=== PATIENT | female | born 1995 | race Caucasian/White ===

== ENCOUNTER 2018-03-24 00:52 | Inpatient (IN) ==
[2018-03-24] MEDS ORDERED: SODIUM CHLORIDE 0.9% 1000ML 1,000 ML IV SCH (01:15)
[2018-03-24 01:23] LABS: Basophils # (auto) 0.06 K/uL (0-0.2); Basophils % (auto) 0.7 %; Eosinophils # (auto) 0.06 K/uL (0-0.5); Eosinophils % (auto) 0.7 %; Hematocrit (blood only) 41.2 % (37-47); Immature Granulocytes # (auto) 0.01 K/uL (0.00-0.02); Immature Granulocytes % (auto) 0.1 %; Lymphocytes # (auto) 3.33 K/uL (1.2-3.4); Lymphocytes % (auto) 41.1 %; Mean Corpuscular Volume 90.7 fL (80-100); Mean Platelet Volume 9.8 fL (7.4-10.4); Monocytes # (auto) 0.54 K/uL (0.11-0.59); Monocytes % (auto) 6.7 %; Neutrophils # (auto) 4.11 K/uL (1.4-6.5); Neutrophils % (auto) 50.7 %; Platelet Count 283 K/uL (130-400); RDW Coefficient of Variation 12.9 % (11.5-14.5); RDW Standard Deviation 42.7 fL (36.4-46.3); Red Blood Count 4.54 M/uL (4.2-5.4); White Blood Count 8.11 K/uL (4.8-10.8)
[2018-03-24 01:39] LABS: Albumin Level 3.6 gm/dl (3.4-5.0); BUN Creatinine Ratio 18.7 (10-20); Calcium 8.4 mg/dl (8.5-10.1); Creatinine Clr Calc Pharmacy 110.7 ml/min; Est GFR (African American) 144.6; Est GFR (Non-African American) 124.7; Potassium 3.1 mmol/L (3.5-5.1)
[2018-03-24 01:42] LABS: Albumin Globulin Ratio 0.9 (0.9-2); Bilirubin,Total 0.2 mg/dl (0.2-1); Globulin 3.9 gm/dl (2.5-4.0); Total Protein 7.5 gm/dl (6.4-8.2)
[2018-03-24 01:43] LABS: Pregnancy Test, Serum Negative (Negative)
[2018-03-24] MEDS ORDERED: VECURONIUM BROMIDE 10 MG VIAL IV STA (01:45)
[2018-03-24 01:57] LABS: Amphetamines+Metham, Urine Pos (Neg); Barbiturates, Urine Neg (Neg); Benzodiazepine, Urine Pos (Neg); Cocaine, Urine Neg (Neg); MDMA (Ecstacy), Urine Neg (Neg); Methadone, Urine Neg (Neg); Opiate, Urine Neg (Neg); Phencyclidine, Urine Neg (Neg)
--- NOTE | 2018-03-24 03:23 | History & Physical Report ---
Date of Service March 24, 2018 Assessment & Plan (1) Hypothermia: 22 y/o F Hx ADHD. The pt was at a college green party where she consumed a large amount of alcohol. She was with a group of friends most of the night who then lost track of her for a time period they estimate at 5 minutes. They set out to look for her and found her in the snow. EMS was called. She was taking shallow breaths and unresponsive when they arrived so that she was emergently intubated at the scene. On arrival to the ER she had a rectal temp as low as 32 '. She remains unconscious on admission although it is noted that she received both Etomidate and Vecuronium for intubation. Her initial ETOH level was 438. The Preceding information and the pt's medical history is obtained from friends who were with her, her parents and the EMS report. 1) LOC - cause not known. Unclear if she suffered a syncopal episode or simply fell in the snow and was unconscious due to intoxication. Currently a CT of the head is pending. Aside from a high alcohol level, her labs are unremarkable aside from hypkalemia. She is intubated on admission and we would consider sedating her if needed overnight to approach sobriety prior to extubation. 2) Hypothermia - with a warming blanket, her temp had increased to above 35' while in the ER. No additional measures at present. 3) Alcohol intoxication - IVF provided - she seems to be more of a weekend drinker and we are not expecting any withdrawal issues 4) Hypokalemia - repleted and Mg provided Full code - SCDs Total time for this admit including review of labs, meds, imaging, records - discussion with pt's family and ER attending - [facility] critical care time 40 min History of Present Illness Chief Complaint: Unconscious, hypothermic, alcohol intoxication. Primary Care Provider: NO PCP 22 y/o F Hx ADHD. The pt was at a college green party where she consumed a large amount of alcohol. She was with a group of friends most of the night who then lost track of her for a time period they estimate at 5 minutes. They set out to look for her and found her in the snow. EMS was called. She was taking shallow breaths and unresponsive when they arrived so that she was emergently intubated at the scene. On arrival to the ER she had a rectal temp as low as 32 '. She remains unconscious on admission although it is noted that she received both Etomidate and Vecuronium for intubation. Preceding info and the pt's medical history is obtained from friends who were with her, her parents and the EMS report. PMH: Limited to ADHD Has not had any prior surgery Social: Psychology major at [employer], Drinks alcohol - possibly regularly - smokes marijuana - no other drug use Family: No significant family history Allergies Allergy/AdvReac Type Severity Reaction Status Date / Time No Known Allergies Allergy Unverified 03/24/18 01:20 Home Medications Home Medications Medication Instructions Recorded Confirmed Type dextroamphetamine-amphetamine 25 mg PO DIRECTED 03/24/18 03/24/18 History [Adderall XR] Past Med/Surg History Medical History ADHD Family History Other Family history non-contributory Social History Current Living Situation Comment: unknown r/t pt condition Smoking Status: Unknown if ever smoked Hx Alcohol Use: Yes (blood alcholol level eleved in ER, see labs for details) Preferred Language: Sudanese Physical Exam 2 Vital Signs (Past 24 Hours): Last Vital Signs Temp 35.1 C L 03/24/18 00:50 Pulse 85 03/24/18 02:45 Resp 16 03/24/18 01:33 BP 107/64 03/24/18 02:45 Pulse Ox 100 03/24/18 02:45
[2018-03-24] MEDS ORDERED: LORazepam 2 MG/ML VIAL (IM USE) ONE (03:28)
[2018-03-24] MEDS ORDERED: LORazepam 2 MG/4 ML VIAL IV STA (03:55)
[2018-03-24] MEDS ORDERED: ICU PROTOCOL FOR HYPERGLYCEMIA PRN (03:55)
[2018-03-24] MEDS ORDERED: PROPOFOL 1,000 MG/100 ML VIAL IV SCH (03:55)
[2018-03-24] MEDS ORDERED: MAGNESIUM SULFATE / D5W 1 GM/100 ML BAG IV ONE (03:59)
[2018-03-24] MEDS: D5W AND LACTATED RINGERS 1,000 ML IV SCH ×2 (04:12→09:04)
[2018-03-24] MEDS: POTASSIUM CHLORIDE / WTR 10 MEQ/100 ML PLCT IV SCH ×2 (04:14→05:22)
[2018-03-24 04:46] LABS: Basophils # (auto) 0.02 K/uL (0-0.2); Basophils % (auto) 0.4 %; Eosinophils # (auto) 0.01 K/uL (0-0.5); Eosinophils % (auto) 0.2 %; Hematocrit (blood only) 38.5 % (37-47); Hemoglobin 12.8 g/dL (12.0-16.0); Immature Granulocytes # (auto) 0.01 K/uL (0.00-0.02); Immature Granulocytes % (auto) 0.2 %; Lymphocytes % (auto) 29.1 %; Mean Corpuscular Hgb Conc 33.2 g/dL (32-36); Mean Corpuscular Volume 89.7 fL (80-100); Mean Platelet Volume 9.4 fL (7.4-10.4); Monocytes # (auto) 0.24 K/uL (0.11-0.59); Monocytes % (auto) 4.4 %; Neutrophils # (auto) 3.62 K/uL (1.4-6.5); Neutrophils % (auto) 65.7 %; Platelet Count 245 K/uL (130-400); RDW Standard Deviation 42.1 fL (36.4-46.3); Red Blood Count 4.29 M/uL (4.2-5.4)
[2018-03-24 05:05] LABS: BUN Creatinine Ratio 15.8 (10-20); Creatinine Clr Calc Pharmacy 119.2 ml/min; Est GFR (African American) 148.1; Est GFR (Non-African American) 127.8; Magnesium 1.8 mg/dl (1.8-2.4); Potassium 3.6 mmol/L (3.5-5.1)
[2018-03-24] MEDS ORDERED: INFLUENZA ADMINISTRATION CHARGE ONE (06:00)
[2018-03-24] MEDS ORDERED: INFLUENZA VIRUS QUAD VACCINE 0.5 ML SYR IM ONE (06:00)
--- NOTE | 2018-03-24 06:07 | XRay Report ---
XR chest 1V portable CLINICAL HISTORY: 22 years-old Female presenting with post intubation. TECHNIQUE: Portable supine AP view of the chest was obtained. COMPARISON: None. FINDINGS: Endotracheal tube terminates in the right mainstem bronchus. Nasogastric tube terminates in the stoma ch, sidehole not visualized though possibly at the level of the GE junction or above. No focal opacit y. No large effusion or pneumothorax. Osseous structures normal. Upper abdomen normal. IMPRESSION: 1. Right mainstem bronchus intubation. Repositioning evident on subsequent radiograph. 2. Nasogastric tube terminates in the stomach with sidehole at or above the GE junction; consider ad vancement. Electronically signed by: Kaden Caicedo M.D. 03/24/2018 6:06 AM
--- NOTE | 2018-03-24 06:09 | XRay Report ---
XR chest 1V portable CLINICAL HISTORY: 22 years-old Female presenting with REPOSITIONING OF INTUBATION TUBE. TECHNIQUE: Portable supine AP view of the chest was obtained. COMPARISON: 03/24/2018 at 12:48 AM. FINDINGS: Endotracheal tube has been retracted and is now located in the lower thoracic trachea. This is approx imately 1 cm from the narayan. Nasogastric tube remains in the proximal stomach with sidehole at or ab ove the GE junction. Cardiomediastinal silhouette normal. No focal opacity. No large effusion or pneu mothorax. Osseous structures normal. Upper abdomen normal. IMPRESSION: 1. Endotracheal tube now in the lower trachea approximately 1 cm from the narayan; consider slight fu rther retraction. 2. Nasogastric tube terminates in the proximal stomach with sidehole at or above the GE junction; co nsider advancement. Electronically signed by: Kaden Caicedo M.D. 03/24/2018 6:08 AM
--- NOTE | 2018-03-24 06:32 | Emergency Department Note ---
Entered by Cuong Lees acting as a scribe for History of Present Illness General Chief Complaint: Alcohol Intoxication Source: EMS History of Present Illness Provider Complaint: alcohol intoxication Last drink: unknown Type of Alcohol: shots Chronic alcohol use: No Associated symptoms: vomiting Treatments prior to arrival: chemical restraints and other (Intubation) The patient is a 22 year old F who presents to the Emergency Room via EMS heavily intoxicated with alcohol, per EMS. They state the patient was walking home when she collapsed, laying in the snow for about 5 minutes before they arrived. When they did arrive she was unresponsive with a pulse ox in the low 80s so they intubated her. She was sedated with 20 mg of IV etomidate. Following the intubation her pulse ox went back up to 100. The patient also vomited multiple times, and EMS believed she aspirated. Her eyes were dilated on physical exam. Her sugar was 123, her ETCO2 prior to intubation was 75-80, her blood pressure was 98/62, and she was breathing about 5 times a minute prior to the intubation. En route the patient received 5mg of Versed and 100mcg of Fentanyl. They also suctioned about 150cc of vomit and inserted an NG tube, which got another 250-300cc. They do not know how much she drank and she only takes Adderall daily. Per the patient's friends, they went out to a house democrat around 2129 where the patient was chugging vodka. They are not exactly sure how much she drank, but suggested anywhere between 1/2 to 3/4 a fifth of vodka. They deny that the patient used any drugs as well as her being depressed or trying to hurt herself. Home Medications Home Medications Medication Instructions Recorded Confirmed Type dextroamphetamine-amphetamine 25 mg PO DIRECTED 03/24/18 03/24/18 History [Adderall XR] Allergies Allergy/AdvReac Type Severity Reaction Status Date / Time No Known Allergies Allergy Unverified 03/24/18 01:20 Past Med/Surg History Medical History ADHD Family History Other Family history non-contributory Social History Current Living Situation Comment: unknown r/t pt condition Smoking Status: Unknown if ever smoked Hx Alcohol Use: Yes (blood alcholol level eleved in ER, see labs for details) Preferred Language: Korean Review of Systems See HPI for pertinent positives & negatives. and A total of 10 systems reviewed and were otherwise negative Physical Exam 2 Vital Signs: Vital Signs - 24 hr 03/24/18 00:50 03/24/18 01:05 03/24/18 01:06 Temperature 35.1 C L Temperature Source Rectal Rectal Temperature Sepsis Recent Feve r Within 48 Hours No Sepsis Action Take n by Nursing No Action Required Pulse Rate 84 70 67 Pulse Rhythm Regular Pulse Strength Normal Respiratory Rate 16 16 Respiratory Effort / Characteristics Mechanically Venti lated Respiratory Depth Normal Respiratory Patter n Regular Blood Pressure 126/77 111/68 Blood Pressure [Ri ght Arm] Blood Pressure Clara n 93 82 Blood Pressure Clara n [Right Arm] Blood Pressure Pos ition Lying Pulse Oximetry 100 100 100 Oxygen Delivery Me thod Mechanical Vent Fraction of Inspir ed Oxygen 30 30 SaO2/FiO2 Ratio 03/24/18 01:14 03/24/18 01:15 03/24/18 01:30 Temperature Temperature Source Rectal Temperature Sepsis Recent Feve r Within 48 Hours Sepsis Action Take n by Nursing Pulse Rate 63 62 56 L Pulse Rhythm Pulse Strength Respiratory Rate Respiratory Effort / Characteristics Respiratory Depth Respiratory Patter n Blood Pressure 114/74 115/78 143/106 H Blood Pressure [Ri ght Arm] Blood Pressure Clara n 87 90 118 Blood Pressure Clara n [Right Arm] Blood Pressure Pos ition Pulse Oximetry 100 100 100 Oxygen Delivery Me thod Fraction of Inspir ed Oxygen SaO2/FiO2 Ratio 03/24/18 01:33 03/24/18 01:45 03/24/18 02:00 Temperature Temperature Source Rectal Temperature 34.6 C L Sepsis Recent Feve r Within 48 Hours Sepsis Action Take n by Nursing Pulse Rate 72 53 L 63 Pulse Rhythm Pulse Strength Respiratory Rate 16 Respiratory Effort / Characteristics Respiratory Depth Respiratory Patter n Blood Pressure 139/106 H Blood Pressure [Ri ght Arm] Blood Pressure Clara n 117 Blood Pressure Clara n [Right Arm] Blood Pressure Pos ition Pulse Oximetry 100 100 100 Oxygen Delivery Me thod Fraction of Inspir ed Oxygen 30 SaO2/FiO2 Ratio 03/24/18 02:30 03/24/18 02:45 03/24/18 03:00 Temperature Temperature Source Rectal Temperature 35 C L 35.3 C L Sepsis Recent Feve r Within 48 Hours Sepsis Action Take n by Nursing Pulse Rate 78 85 94 H Pulse Rhythm Pulse Strength Respiratory Rate Respiratory Effort / Characteristics Respiratory Depth Respiratory Patter n Blood Pressure 114/69 107/64 108/67 Blood Pressure [Ri ght Arm] Blood Pressure Clara n 84 78 80 Blood Pressure Clara n [Right Arm] Blood Pressure Pos ition Pulse Oximetry 100 100 100 Oxygen Delivery Me thod Fraction of Inspir ed Oxygen SaO2/FiO2 Ratio 03/24/18 03:15 03/24/18 03:42 03/24/18 03:48 Temperature 36.1 C L Temperature Source Rectal Rectal Temperature Sepsis Recent Feve r Within 48 Hours Sepsis Action Take n by Nursing Pulse Rate 109 H 114 H Pulse Rhythm Pulse Strength Respiratory Rate 16 20 Respiratory Effort / Characteristics Mechanically Venti lated Respiratory Depth Respiratory Patter n Blood Pressure 102/60 112/83 Blood Pressure [Ri ght Arm] 112/83 Blood Pressure Clara n 74 92 Blood Pressure Clara n [Right Arm] 92 Blood Pressure Pos ition Pulse Oximetry 99 100 Oxygen Delivery Me thod Mechanical Vent Fraction of Inspir ed Oxygen 30 SaO2/FiO2 Ratio 333 03/24/18 03:53 03/24/18 04:00 03/24/18 04:15 Temperature Temperature Source Rectal Temperature 36.2 C L Sepsis Recent Feve r Within 48 Hours Sepsis Action Take n by Nursing Pulse Rate 124 H 91 H 95 H Pulse Rhythm Pulse Strength Respiratory Rate 16 Respiratory Effort / Characteristics Respiratory Depth Respiratory Patter n Blood Pressure 117/79 100/57 L Blood Pressure [Ri ght Arm] Blood Pressure Clara n 91 71 Blood Pressure Clara n [Right Arm] Blood Pressure Pos ition Pulse Oximetry 100 100 Oxygen Delivery Me thod Fraction of Inspir ed Oxygen 30 SaO2/FiO2 Ratio 03/24/18 04:30 03/24/18 04:45 03/24/18 05:00 Temperature Temperature Source Rectal Temperature Sepsis Recent Feve r Within 48 Hours Sepsis Action Take n by Nursing Pulse Rate 87 88 83 Pulse Rhythm Pulse Strength Respiratory Rate Respiratory Effort / Characteristics Respiratory Depth Respiratory Patter n Blood Pressure 94/57 L 93/57 L 107/69 Blood Pressure [Ri ght Arm] Blood Pressure Clara n 69 69 81 Blood Pressure Clara n [Right Arm] Blood Pressure Pos ition Pulse Oximetry 100 100 100 Oxygen Delivery Me thod Fraction of Inspir ed Oxygen SaO2/FiO2 Ratio 03/24/18 05:15 03/24/18 05:30 03/24/18 05:45 Temperature Temperature Source Rectal Temperature Sepsis Recent Feve r Within 48 Hours Sepsis Action Take n by Nursing Pulse Rate 98 H 111 H 105 H Pulse Rhythm Pulse Strength Respiratory Rate 16 Respiratory Effort / Characteristics Respiratory Depth Respiratory Patter n Blood Pressure 94/50 L 114/70 104/66 Blood Pressure [Ri ght Arm] Blood Pressure Clara n 64 84 78 Blood Pressure Clara n [Right Arm] Blood Pressure Pos ition Pulse Oximetry 99 98 99 Oxygen Delivery Me thod Fraction of Inspir ed Oxygen 30 SaO2/FiO2 Ratio 03/24/18 06:00 03/24/18 06:15 Temperature Temperature Source Rectal Temperature Sepsis Recent Feve r Within 48 Hours Sepsis Action Take n by Nursing Pulse Rate 110 H 103 H Pulse Rhythm Pulse Strength Respiratory Rate Respiratory Effort / Characteristics Respiratory Depth Respiratory Patter n Blood Pressure 98/56 L 95/50 L Blood Pressure [Ri ght Arm] Blood Pressure Clara n 70 65 Blood Pressure Clara n [Right Arm] Blood Pressure Pos ition Pulse Oximetry 99 99 Oxygen Delivery Me thod Fraction of Inspir ed Oxygen SaO2/FiO2 Ratio Physical Exam: General: GCS 4 HEENT: Head - normocephalic and atraumatic Pupils are 3mm equal, round, and non-reactive to light. Extraocular eye muscles are intact, and sclera are anicteric. Nose - moist nasal mucosa without discharge. Mouth - moist buccal mucosa. Endotracheal tube in place Oropharynx is nonerythematous and there is no tonsillar exudate or edema noted. Neck: Supple; no JVD, nuchal rigidity, cervical lymphadenopathy. Heart: Regular rate and rhythm. There is a normal S1 and S2 with no murmurs, clicks, or gallops appreciated. Lungs: Clear to auscultation bilaterally with no wheezes, rales, or rhonchi. Abdomen: Soft, completely nontender, nondistended, with good bowel sounds. There are no palpable pulsatile masses or hepatosplenomegaly. There is no guarding, rigidity, or rebound noted. Extremities: No evidence of cyanosis, clubbing, or edema. There are easily palpable peripheral pulses. Skin: warm and dry with good turgor and no rashes. Course 0052: Past medical records reviewed. The patient was evaluated in room B01, and a complete history and physical examination were performed. Report was received from EMS. The patient was placed in the cardiac catheterization technologist and pulse oximeter. A portable chest x-ray was obtained to confirm tube placement. Vital signs were stable. The patient was placed on the ventilator. She was starting to palacio the ventilator. She was given 5 mg of IV vecuronium. the endotracheal tube was noted to be in the right mainstem. Was pulled back 2 cm and a second chest x-ray was obtained. 0110: The patient's friends contacted her parents. I spoke to the patient's father and he is going to come. I assured him I will call to update him on results. 0115: I ordered Sodium Chloride 1000mls @ 999mls/hr IV. The patient was hypothermic and therefore this saline was warmed. The bear hugger was placed. 0150: The patient's temperature dropped to 32C. She was placed on a warming blanket. I called and updated the father. 0210: I updated the patient's friends on the situation. 0230: The environmental compliance officer was paged. 0234: I spoke to Dr. Geri Schilling [facility] Workforce Planner about the patient's case and her results thus far. 0250: I spoke to Dr. Chris [facility] Hospitalist about the patient's case and he is going to accept her. A CT scan of the brain was ordered to rule out trauma. This was negative. Consultations Consultation #1: I spoke to Dr. Geri Schilling [facility] Workforce Planner about the patient's case and her results thus far. Time: 02:34 Consultation #2: I spoke to Dr. Chris [facility] Hospitalist about the patient's case and he is going to accept her. Time: 02:50 Administered Medications Potassium Chloride (K Rogelio / Wtr) 10 meq in 100 mls @ 100 mls/hr IV Q1H ROSA ELENA Stop: 04/23/18 03:59 Last Admin: 03/24/18 05:22 Dose: 100 mls/hr Infusion: 03/24/18 05:14 Dose: 100 mls/hr Admin: 03/24/18 04:14 Dose: 100 mls/hr Dextrose/Lactated Ringer's (D5w And Lactated Ringers) 1,000 mls @ 200 mls/hr IV .Q5H ROSAE LENA Stop: 03/24/18 13:59 Last Admin: 03/24/18 04:12 Dose: 200 mls/hr Discontinued Medications Sodium Chloride (Nss 1000ml) 1,000 mls @ 999 mls/hr IV .Q1H1M ROSA ELENA Stop: 03/24/18 02:15 Last Infusion: 03/24/18 02:40 Dose: 0 mls/hr Admin: 03/24/18 01:37 Dose: 999 mls/hr Magnesium Sulfate/Dextrose (Magnesium Sulfate / D5w) 1 gm in 100 mls @ 100 mls/ hr IV ONE ONE Stop: 03/24/18 04:58 Last Infusion: 03/24/18 05:30 Dose: 0 mls/hr Admin: 03/24/18 04:16 Dose: 100 mls/hr Vecuronium [place] (Norcuron) 5 mg IV NOW STA Stop: 03/24/18 01:46 Last Admin: 03/24/18 01:00 Dose: 5 mg Medical Decision Making Differential Diagnosis The patient is a 22 year old female who presents to the ED via EMS heavily intoxicated with alcohol. Differential diagnosis includes alcohol overdose, drug intoxication, hypothermia, and head trauma, amongst others. Medical Records Attestation: I reviewed the patient's medical records. Home Medications Current Medication List: was personally reviewed by me Laboratory Data Attestation: I reviewed the patient's lab results. Result diagrams: 03/24/18 04:35 03/24/18 04:35 Lab Results 03/24/18 03/24/18 03/24/18 Range/Units 01:11 01:11 01:11 WBC 8.11 (4.8-10.8) K/uL RBC 4.54 (4.2-5.4) M/uL Hgb 14.0 (12.0-16.0) g/dL Hct 41.2 (37-47) % MCV 90.7 (80-100) fL MCH 30.8 (25-34) pg MCHC 34.0 (32-36) g/dL RDW Std Deviation 42.7 (36.4-46.3) fL RDW Coeff of Nini 12.9 (11.5-14.5) % Plt Count 283 (130-400) K/uL MPV 9.8 (7.4-10.4) fL Immature Gran % (Auto) 0.1 % Neut % (Auto) 50.7 % Lymph % (Auto) 41.1 % Dickinson % (Auto) 6.7 % Eos % (Auto) 0.7 % Baso % (Auto) 0.7 % Immature Gran # (Auto) 0.01 (0.00-0.02) K/uL Neut # (Auto) 4.11 (1.4-6.5) K/uL Lymph # (Auto) 3.33 (1.2-3.4) K/uL Dickinson # (Auto) 0.54 (0.11-0.59) K/uL Eos # (Auto) 0.06 (0-0.5) K/uL Baso # (Auto) 0.06 (0-0.2) K/uL Sodium 139 (136-145) mmol/L Potassium 3.1 L (3.5-5.1) mmol/L Chloride 111 H (98-107) mmol/L Carbon Dioxide 21 (21-32) mmol/L Anion Gap 7.0 (3-11) BUN 13 (7-18) mg/dl Creatinine 0.70 (0.6-1.2) mg/dl Est Cr Clr Drug Dosing 110.7 ml/min Est GFR ( Amer) 144.6 Est GFR (Non-Af Amer) 124.7 BUN/Creatinine Ratio 18.7 (10-20) Glucose 107 H (70-99) mg/dl POC Glucose (70-99) Osmolality (280-300) mOsm/kg Calcium 8.4 L (8.5-10.1) mg/dl Magnesium (1.8-2.4) mg/dl Total Bilirubin 0.2 (0.2-1) mg/dl AST 21 (15-37) U/L ALT 21 (12-78) U/L Alkaline Phosphatase 87 (45-117) U/L Total Protein 7.5 (6.4-8.2) gm/dl Albumin 3.6 (3.4-5.0) gm/dl Globulin 3.9 (2.5-4.0) gm/dl Albumin/Globulin Ratio 0.9 (0.9-2) HCG, Qual (Negative) Nasal Screen MRSA (PCR) (Negative) Urine Opiates Screen (Neg) Ur Methadone, Qual (Neg) Urine Barbiturates (Neg) Ur Phencyclidine (PCP) (Neg) U Amphetamin/Meth Scrn (Neg) MDMA (Ecstasy) Screen (Neg) U Benzodiazepines Scrn (Neg) Ur Cocaine Metabolite (Neg) U Marijuana (THC) Screen (Neg) Ethyl Alcohol mg/dL 438.0 H (0-3) mg/dl Methyl Alcohol Level 03/24/18 03/24/18 03/24/18 Range/Units 01:11 01:15 01:36 WBC (4.8-10.8) K/uL RBC (4.2-5.4) M/uL Hgb (12.0-16.0) g/dL Hct (37-47) % MCV (80-100) fL MCH (25-34) pg MCHC (32-36) g/dL RDW Std Deviation (36.4-46.3) fL RDW Coeff of Nini (11.5-14.5) % Plt Count (130-400) K/uL MPV (7.4-10.4) fL Immature Gran % (Auto) % Neut % (Auto) % Lymph % (Auto) % Dickinson % (Auto) % Eos % (Auto) % Baso % (Auto) % Immature Gran # (Auto) (0.00-0.02) K/uL Neut # (Auto) (1.4-6.5) K/uL Lymph # (Auto) (1.2-3.4) K/uL Dickinson # (Auto) (0.11-0.59) K/uL Eos # (Auto) (0-0.5) K/uL Baso # (Auto) (0-0.2) K/uL Sodium (136-145) mmol/L Potassium (3.5-5.1) mmol/L Chloride (98-107) mmol/L Carbon Dioxide (21-32) mmol/L Anion Gap (3-11) BUN (7-18) mg/dl Creatinine (0.6-1.2) mg/dl Est Cr Clr Drug Dosing ml/min Est GFR ( Amer) Est GFR (Non-Af Amer) BUN/Creatinine Ratio (10-20) Glucose (70-99) mg/dl POC Glucose 83 (70-99) Osmolality (280-300) mOsm/kg Calcium (8.5-10.1) mg/dl Magnesium (1.8-2.4) mg/dl Total Bilirubin (0.2-1) mg/dl AST (15-37) U/L ALT (12-78) U/L Alkaline Phosphatase (45-117) U/L Total Protein (6.4-8.2) gm/dl Albumin (3.4-5.0) gm/dl Globulin (2.5-4.0) gm/dl Albumin/Globulin Ratio (0.9-2) HCG, Qual Negative (Negative) Nasal Screen MRSA (PCR) (Negative) Urine Opiates Screen Neg (Neg) Ur Methadone, Qual Neg (Neg) Urine Barbiturates Neg (Neg) Ur Phencyclidine (PCP) Neg (Neg) U Amphetamin/Meth Scrn Pos H (Neg) MDMA (Ecstasy) Screen Neg (Neg) U Benzodiazepines Scrn Pos H (Neg) Ur Cocaine Metabolite Neg (Neg) U Marijuana (THC) Screen Pos H (Neg) Ethyl Alcohol mg/dL (0-3) mg/dl Methyl Alcohol Level 03/24/18 03/24/18 03/24/18 Range/Units 02:42 04:35 04:35 WBC (4.8-10.8) K/uL RBC (4.2-5.4) M/uL Hgb (12.0-16.0) g/dL Hct (37-47) % MCV (80-100) fL MCH (25-34) pg MCHC (32-36) g/dL RDW Std Deviation (36.4-46.3) fL RDW Coeff of Nini (11.5-14.5) % Plt Count (130-400) K/uL MPV (7.4-10.4) fL Immature Gran % (Auto) % Neut % (Auto) % Lymph % (Auto) % Dickinson % (Auto) % Eos % (Auto) % Baso % (Auto) % Immature Gran # (Auto) (0.00-0.02) K/uL Neut # (Auto) (1.4-6.5) K/uL Lymph # (Auto) (1.2-3.4) K/uL Dickinson # (Auto) (0.11-0.59) K/uL Eos # (Auto) (0-0.5) K/uL Baso # (Auto) (0-0.2) K/uL Sodium (136-145) mmol/L Potassium (3.5-5.1) mmol/L Chloride (98-107) mmol/L Carbon Dioxide (21-32) mmol/L Anion Gap (3-11) BUN (7-18) mg/dl Creatinine (0.6-1.2) mg/dl Est Cr Clr Drug Dosing ml/min Est GFR ( Amer) Est GFR (Non-Af Amer) BUN/Creatinine Ratio (10-20) Glucose (70-99) mg/dl POC Glucose (70-99) Osmolality 389 H* (280-300) mOsm/kg Calcium (8.5-10.1) mg/dl Magnesium (1.8-2.4) mg/dl Total Bilirubin (0.2-1) mg/dl AST (15-37) U/L ALT (12-78) U/L Alkaline Phosphatase (45-117) U/L Total Protein (6.4-8.2) gm/dl Albumin (3.4-5.0) gm/dl Globulin (2.5-4.0) gm/dl Albumin/Globulin Ratio (0.9-2) HCG, Qual (Negative) Nasal Screen MRSA (PCR) Negative (Negative) Urine Opiates Screen (Neg) Ur Methadone, Qual (Neg) Urine Barbiturates (Neg) Ur Phencyclidine (PCP) (Neg) U Amphetamin/Meth Scrn (Neg) MDMA (Ecstasy) Screen (Neg) U Benzodiazepines Scrn (Neg) Ur Cocaine Metabolite (Neg) U Marijuana (THC) Screen (Neg) Ethyl Alcohol mg/dL (0-3) mg/dl Methyl Alcohol Level Cancelled 03/24/18 03/24/18 03/24/18 Range/Units 04:35 04:35 05:02 WBC 5.50 (4.8-10.8) K/uL RBC 4.29 (4.2-5.4) M/uL Hgb 12.8 (12.0-16.0) g/dL Hct 38.5 (37-47) % MCV 89.7 (80-100) fL MCH 29.8 (25-34) pg MCHC 33.2 (32-36) g/dL RDW Std Deviation 42.1 (36.4-46.3) fL RDW Coeff of Nini 13.0 (11.5-14.5) % Plt Count 245 (130-400) K/uL MPV 9.4 (7.4-10.4) fL Immature Gran % (Auto) 0.2 % Neut % (Auto) 65.7 % Lymph % (Auto) 29.1 % Dickinson % (Auto) 4.4 % Eos % (Auto) 0.2 % Baso % (Auto) 0.4 % Immature Gran # (Auto) 0.01 (0.00-0.02) K/uL Neut # (Auto) 3.62 (1.4-6.5) K/uL Lymph # (Auto) 1.60 (1.2-3.4) K/uL Dickinson # (Auto) 0.24 (0.11-0.59) K/uL Eos # (Auto) 0.01 (0-0.5) K/uL Baso # (Auto) 0.02 (0-0.2) K/uL Sodium 145 (136-145) mmol/L Potassium 3.6 D (3.5-5.1) mmol/L Chloride 119 H (98-107) mmol/L Carbon Dioxide 20 L (21-32) mmol/L Anion Gap 6.0 (3-11) BUN 10 (7-18) mg/dl Creatinine 0.65 (0.6-1.2) mg/dl Est Cr Clr Drug Dosing 119.2 ml/min Est GFR ( Amer) 148.1 Est GFR (Non-Af Amer) 127.8 BUN/Creatinine Ratio 15.8 (10-20) Glucose 89 (70-99) mg/dl POC Glucose (70-99) Osmolality (280-300) mOsm/kg Calcium 7.0 L D (8.5-10.1) mg/dl Magnesium 1.8 (1.8-2.4) mg/dl Total Bilirubin (0.2-1) mg/dl AST (15-37) U/L ALT (12-78) U/L Alkaline Phosphatase (45-117) U/L Total Protein (6.4-8.2) gm/dl Albumin (3.4-5.0) gm/dl Globulin (2.5-4.0) gm/dl Albumin/Globulin Ratio (0.9-2) HCG, Qual (Negative) Nasal Screen MRSA (PCR) (Negative) Urine Opiates Screen (Neg) Ur Methadone, Qual (Neg) Urine Barbiturates (Neg) Ur Phencyclidine (PCP) (Neg) U Amphetamin/Meth Scrn (Neg) MDMA (Ecstasy) Screen (Neg) U Benzodiazepines Scrn (Neg) Ur Cocaine Metabolite (Neg) U Marijuana (THC) Screen (Neg) Ethyl Alcohol mg/dL 348.0 H (0-3) mg/dl Methyl Alcohol Level Imaging Data Attestation: I personally reviewed and interpreted this imaging study as follows : My impression: CXR 1V: ET tube in right main stem, no obvious consolidation REPEAT: CXR 1V: ET tube 1cm above narayan, no other pulmonary findings Radiologist's impression: Radiology results as stated below per my review and the radiologist's interpretation: CT HEAD No acute intracranial hemorrhage or extra axial fluid collection. No calvarial fractures. Radiologist: Maicol Price MD Study ready at 03:43 and initial results transmitted at 04:02 ECG Data Attestation: I personally reviewed and interpreted this ECG as follows: Indication: toxicologic Rate (beats per minute): 66 Rhythm: normal sinus Findings: no PAC, no PVC and no acute ischemic change Blood Pressure Blood Pressure Findings: Normal blood pressure MDM Narrative This is a 22-year-old female patient who presents to the emergency department by EMS as an alcohol overdose with hypoxia. According to the friends, the patient drank a large amount of vodka and then was found outside a house unresponsive in the snow. EMS found the patient hypoxic with a respiratory rate of 5. They used etomidate to facilitate sedation assisted intubation. This was successful in the field. Patient had an elevated end-tidal CO2 and pulse ox prior to intubation and these normalized after intubation. The patient was noted to be significantly hypothermic. She was initially placed on warmed IV fluids and a bear hugger. Her temp was not improving and therefore she was placed on a warming blanket. I kept the patient parents abreast of the situation. The patient's friends who are at the bedside abreast of the situation as well. She had no outward signs of hypothermia such as frostbite. The patient's blood alcohol level was greater than 430. I believe this accounts for her unresponsiveness. I discussed the case with the hospitalist and the environmental compliance officer and they will further evaluate this patient. Impression & Plan Alcohol overdose, Hypothermia, Hypoxia Critical Care Time I have personally spent greater than 120 minutes of critical care time in the direct management of this patient. This includes bedside care, interpretation of diagnostic studies, and testing, discussion with consultants, patient, and family members, and other required patient management activities. This 120 minutes is in excess of all separately billable procedures. Critical Care Time: Yes Total Critical Care Time: 120 Discharge Plan Visit Data *Final* Discharge Date/Time: 03/24/18 03:23 Chief Complaint: Alcohol Intoxication ED Provider: Sindy Fisher Discharge Problem: Alcohol overdose, Hypothermia, Hypoxia Patient Disposition: Admitted As Inpatient Discharge Instructions Interventions: ED Discharge Assessment Last Done: 03/24/18 03:23 The scribe's documentation has been prepared under my direction and personally reviewed by me in its entirety. I confirm that the note above accurately reflects all work, treatment, procedures, and medical decision making performed by me.
--- NOTE | 2018-03-24 07:07 | CT Scan Report ---
CT head/brain wo con CLINICAL HISTORY: 22 years-old Female presenting with trauma. TECHNIQUE: Multidetector CT imaging of the head was performed without the use of intravenous contrast . IV contrast: None. One or more dose lowering techniques were used consistent with the principles of ALARA (as low as reasonably achievable), including automatic exposure control, mA or kV adjustment t o individual patient size, and/or use of iterative reconstruction. COMPARISON: None. CT DOSE (mGy.cm): The estimated cumulative dose is 614.27 mGy.cm. FINDINGS: [employer] topogram: Unremarkable. Ventricles and sulci normal in size. No hemorrhage. Brain parenchyma normal in appearance with preser akbar garzon-white differentiation. No acute territorial infarct. No mass effect or midline shift. No ext ra-axial fluid collection. Paranasal sinuses and mastoid air cells clear. Calvarium intact. IMPRESSION: 1. No acute intracranial abnormality. Electronically signed by: Kaden Caicedo M.D. 03/24/2018 7:06 AM
--- NOTE | 2018-03-24 07:58 | Critical Care Consultation ---
Date of Consultation March 24, 2018 Assessment & Plan (1) Alcohol overdose: 22-year-old female was admitted on 24 March 2018 for hypoxia, hypothermia, and altered mental status. RESOURCE FORESTER: CAM-ICU negative this AM. Extubated this morning. CT head negative. EtOH was 438, trending down. UDS positive for benzo and THC. PMH ADHD, on adderall. - Had a lengthy discussion with the patient and her parents at bedside. She will be no longer legally intoxicated roughly earlier this afternoon. If she continues to do well with her mental status, she can likely be discharged into her parents custody later today. Pulm: Emergently intubated for hypoxia, extubated in a.m. Question of aspiration with emesis event. No opacity seen on CXR. Presently lungs are clear to auscultation. No evidence of respiratory distress. CVS: No known underlying CV disease. Relative hypotension with hypothermia, since resolved. Given IVF. ID: Hypothermic, likely environmental, resolving. No leukocytosis. No reported recent illnesses. Endo: Hypothermia with temp 36.1 on arrival. No known underlying DM or thyroid issues. Urine hCG negative. Renal/Lytes: Admit Cr 0.7. Hypokalemia, admit K 3.1, replaced. Magnesium repleted as well. Blood Osm 389. Osm gap -1. GI: No known acute issues. Can advance to regular diet now that extubated. Heme: Admit Hb 12.8. No known acute issues. DVT prophy: SCDs and early ambulation. Skin: No evidence of frostbite on extremities. Lines: PIV, NGT. Code status: Full code. PT/OT: Deferred. Disposition: Initially admitted to ICU due to intubation. If she continues to do well, likely discharge home this afternoon into her parent's custody. (2) Hypothermia: (3) Hypoxia: (4) Hypokalemia: Supervising Physician Co-Signing Physician Notes Dr. Arceo was resident physician during care of patient. I separately evaluated patient for chicas portions of the history and the exam. I was present during the critical portion of medical decision making, and I discussed the case with the resident. I generally agree with the findings and plan. Patient was able to follow commands and was successfully extubated. Based off her symptoms and calculated alcohol level she did not have any coingestions. She does not have elevated liver enzymes, she was not hypoxic and there was no infiltrate on chest x-ray I think she is at low risk for aspiration pneumonia, most I do not see various convincing evidence of aspiration pneumonitis. She is able to eat ambulate and void without difficulty and was discharged into the care of her parents. History of Present Illness Attending Physician: Marcelino Brooks History of Present Illness 22-year-old female was brought to the ED via EMS with concerns for hypoxia, hypothermia, and AMS. Patient arrived intubated, thus initial history is per EMS, ED, and later family. By report, the patient drank upwards of a fifth of alcohol very quickly at a alliance party the night of admission. Her friends lost track of her and she was found within five minutes outside lying down in the snow. EMS states her SpO2 was around 70s-80s, she was taking shallow breaths and was unresponsive, and therefore was emergently intubated. On evaluation in the ICU in the morning after this event, patient was found initially intubated with her parents at bedside. She woke and was following commands, thus was extubated. She states she remembers drinking too much alcohol but does not recall falling. She does not recall being intubated. She denies any particular acute pains or concerns. Allergies Allergy/AdvReac Type Severity Reaction Status Date / Time No Known Allergies Allergy Unverified 03/24/18 01:20 Home Medications Home Medications Medication Instructions Recorded Confirmed Type dextroamphetamine-amphetamine 25 mg PO DIRECTED 03/24/18 03/24/18 History [Adderall XR] Patient History Medical History ADHD Family History Other Family history non-contributory Social History Current Living Situation Comment: unknown r/t pt condition Smoking Status: Unknown if ever smoked Hx Alcohol Use: Yes (blood alcholol level eleved in ER, see labs for details) Preferred Language: Lithuanian Review of Systems Unable to obtain ROS due to current intoxication. Physical Exam 2 Vital Signs (Past 24 Hours): Last Vital Signs Temp 36.1 C L 03/24/18 03:42 Pulse 103 H 03/24/18 06:15 Resp 16 03/24/18 05:15 BP 95/50 L 03/24/18 06:15 Pulse Ox 99 03/24/18 06:15 Physical Exam: GENERAL: Awake, alert, mildly disoriented, appears fatigued, but does not appear in any acute distress. HENT: Normocephalic, atraumatic. Oropharynx unremarkable. EYES: Normal conjunctiva. Sclera non-icteric. NECK: Inspection normal. Non-tender. Supple and full ROM. No nuchal rigidity. CARDIAC: +S1S2 RRR, no murmurs. RESPIRATORY: Clear to auscultation. No wheezes or rales. Normal respiratory effort. GI: +BS, soft, non-distended. No tenderness to palpation. No rebound or guarding. EXTREMITIES: No pedal edema or calf tenderness. Moving all extremities naturally and easily. NEURO: No gross neuro deficits. Results & Data Laboratory Results 03/24/18 03/24/18 03/24/18 Range/Units 05:02 04:35 04:35 WBC 5.50 (4.8-10.8) K/uL RBC 4.29 (4.2-5.4) M/uL Hgb 12.8 (12.0-16.0) g/dL Hct 38.5 (37-47) % MCV 89.7 (80-100) fL MCH 29.8 (25-34) pg MCHC 33.2 (32-36) g/dL RDW Std Deviation 42.1 (36.4-46.3) fL RDW Coeff of Nini 13.0 (11.5-14.5) % Plt Count 245 (130-400) K/uL MPV 9.4 (7.4-10.4) fL Immature Gran % (Auto) 0.2 % Neut % (Auto) 65.7 % Lymph % (Auto) 29.1 % [place] % (Auto) 4.4 % Eos % (Auto) 0.2 % Baso % (Auto) 0.4 % Immature Gran # (Auto) 0.01 (0.00-0.02) K/uL Neut # (Auto) 3.62 (1.4-6.5) K/uL Lymph # (Auto) 1.60 (1.2-3.4) K/uL [place] # (Auto) 0.24 (0.11-0.59) K/uL Eos # (Auto) 0.01 (0-0.5) K/uL Baso # (Auto) 0.02 (0-0.2) K/uL Sodium 145 (136-145) mmol/L Potassium 3.6 D (3.5-5.1) mmol/L Chloride 119 H (98-107) mmol/L Carbon Dioxide 20 L (21-32) mmol/L Anion Gap 6.0 (3-11) BUN 10 (7-18) mg/dl Creatinine 0.65 (0.6-1.2) mg/dl Est Cr Clr Drug Dosing 119.2 ml/min Est GFR ( Amer) 148.1 Est GFR (Non-Af Amer) 127.8 BUN/Creatinine Ratio 15.8 (10-20) Glucose 89 (70-99) mg/dl POC Glucose (70-99) Osmolality (280-300) mOsm/kg Calcium 7.0 L D (8.5-10.1) mg/dl Magnesium 1.8 (1.8-2.4) mg/dl Total Bilirubin (0.2-1) mg/dl AST (15-37) U/L ALT (12-78) U/L Alkaline Phosphatase (45-117) U/L Total Protein (6.4-8.2) gm/dl Albumin (3.4-5.0) gm/dl Globulin (2.5-4.0) gm/dl Albumin/Globulin Ratio (0.9-2) HCG, Qual (Negative) Nasal Screen MRSA (PCR) (Negative) Urine Opiates Screen (Neg) Ur Methadone, Qual (Neg) Urine Barbiturates (Neg) Ur Phencyclidine (PCP) (Neg) U Amphetamines Confirm U Amphetamin/Meth Scrn (Neg) U Methamphetamin Confrm MDMA (Ecstasy) Screen (Neg) U OH-Alprazolam Confrm U Benzodiazepines Scrn (Neg) 7-Amino Clonazepam Ur Nordiazepam Confirm U OH-ethylflurazepam U Lorazepam Cnf GC/MS U Oxazepam Confm GC/MS Ur Temazepam Confirm U OH-Triazolam Confirm U OH-Midazolam Confirm Ur Cocaine Metabolite (Neg) U Marijuana (THC) Screen (Neg) U Marijuana THC Carboxy Ethyl Alcohol mg/dL 348.0 H (0-3) mg/dl Methyl Alcohol Level 03/24/18 03/24/18 03/24/18 Range/Units 04:35 04:35 02:42 WBC (4.8-10.8) K/uL RBC (4.2-5.4) M/uL Hgb (12.0-16.0) g/dL Hct (37-47) % MCV (80-100) fL MCH (25-34) pg MCHC (32-36) g/dL RDW Std Deviation (36.4-46.3) fL RDW Coeff of Nini (11.5-14.5) % Plt Count (130-400) K/uL MPV (7.4-10.4) fL Immature Gran % (Auto) % Neut % (Auto) % Lymph % (Auto) % [place] % (Auto) % Eos % (Auto) % Baso % (Auto) % Immature Gran # (Auto) (0.00-0.02) K/uL Neut # (Auto) (1.4-6.5) K/uL Lymph # (Auto) (1.2-3.4) K/uL [place] # (Auto) (0.11-0.59) K/uL Eos # (Auto) (0-0.5) K/uL Baso # (Auto) (0-0.2) K/uL Sodium (136-145) mmol/L Potassium (3.5-5.1) mmol/L Chloride (98-107) mmol/L Carbon Dioxide (21-32) mmol/L Anion Gap (3-11) BUN (7-18) mg/dl Creatinine (0.6-1.2) mg/dl Est Cr Clr Drug Dosing ml/min Est GFR ( Amer) Est GFR (Non-Af Amer) BUN/Creatinine Ratio (10-20) Glucose (70-99) mg/dl POC Glucose (70-99) Osmolality 389 H* (280-300) mOsm/kg Calcium (8.5-10.1) mg/dl Magnesium (1.8-2.4) mg/dl Total Bilirubin (0.2-1) mg/dl AST (15-37) U/L ALT (12-78) U/L Alkaline Phosphatase (45-117) U/L Total Protein (6.4-8.2) gm/dl Albumin (3.4-5.0) gm/dl Globulin (2.5-4.0) gm/dl Albumin/Globulin Ratio (0.9-2) HCG, Qual (Negative) Nasal Screen MRSA (PCR) Negative (Negative) Urine Opiates Screen (Neg) Ur Methadone, Qual (Neg) Urine Barbiturates (Neg) Ur Phencyclidine (PCP) (Neg) U Amphetamines Confirm U Amphetamin/Meth Scrn (Neg) U Methamphetamin Confrm MDMA (Ecstasy) Screen (Neg) U OH-Alprazolam Confrm U Benzodiazepines Scrn (Neg) 7-Amino Clonazepam Ur Nordiazepam Confirm U OH-ethylflurazepam U Lorazepam Cnf GC/MS U Oxazepam Confm GC/MS Ur Temazepam Confirm U OH-Triazolam Confirm U OH-Midazolam Confirm Ur Cocaine Metabolite (Neg) U Marijuana (THC) Screen (Neg) U Marijuana THC Carboxy Ethyl Alcohol mg/dL (0-3) mg/dl Methyl Alcohol Level Cancelled 03/24/18 03/24/18 03/24/18 Range/Units 01:36 01:15 01:15 WBC (4.8-10.8) K/uL RBC (4.2-5.4) M/uL Hgb (12.0-16.0) g/dL Hct (37-47) % MCV (80-100) fL MCH (25-34) pg MCHC (32-36) g/dL RDW Std Deviation (36.4-46.3) fL RDW Coeff of Nini (11.5-14.5) % Plt Count (130-400) K/uL MPV (7.4-10.4) fL Immature Gran % (Auto) % Neut % (Auto) % Lymph % (Auto) % [place] % (Auto) % Eos % (Auto) % Baso % (Auto) % Immature Gran # (Auto) (0.00-0.02) K/uL Neut # (Auto) (1.4-6.5) K/uL Lymph # (Auto) (1.2-3.4) K/uL [place] # (Auto) (0.11-0.59) K/uL Eos # (Auto) (0-0.5) K/uL Baso # (Auto) (0-0.2) K/uL Sodium (136-145) mmol/L Potassium (3.5-5.1) mmol/L Chloride (98-107) mmol/L Carbon Dioxide (21-32) mmol/L Anion Gap (3-11) BUN (7-18) mg/dl Creatinine (0.6-1.2) mg/dl Est Cr Clr Drug Dosing ml/min Est GFR ( Amer) Est GFR (Non-Af Amer) BUN/Creatinine Ratio (10-20) Glucose (70-99) mg/dl POC Glucose 83 (70-99) Osmolality (280-300) mOsm/kg Calcium (8.5-10.1) mg/dl Magnesium (1.8-2.4) mg/dl Total Bilirubin (0.2-1) mg/dl AST (15-37) U/L ALT (12-78) U/L Alkaline Phosphatase (45-117) U/L Total Protein (6.4-8.2) gm/dl Albumin (3.4-5.0) gm/dl Globulin (2.5-4.0) gm/dl Albumin/Globulin Ratio (0.9-2) HCG, Qual (Negative) Nasal Screen MRSA (PCR) (Negative) Urine Opiates Screen Neg (Neg) Ur Methadone, Qual Neg (Neg) Urine Barbiturates Neg (Neg) Ur Phencyclidine (PCP) Neg (Neg) U Amphetamines Confirm Pending U Amphetamin/Meth Scrn Pos H (Neg) U Methamphetamin Confrm Pending MDMA (Ecstasy) Screen Neg (Neg) U OH-Alprazolam Confrm Pending U Benzodiazepines Scrn Pos H (Neg) 7-Amino Clonazepam Pending Ur Nordiazepam Confirm Pending U OH-ethylflurazepam Pending U Lorazepam Cnf GC/MS Pending U Oxazepam Confm GC/MS Pending Ur Temazepam Confirm Pending U OH-Triazolam Confirm Pending U OH-Midazolam Confirm Pending Ur Cocaine Metabolite Neg (Neg) U Marijuana (THC) Screen Pos H (Neg) U Marijuana THC Carboxy Pending Ethyl Alcohol mg/dL (0-3) mg/dl Methyl Alcohol Level 03/24/18 03/24/18 03/24/18 Range/Units 01:11 01:11 01:11 WBC (4.8-10.8) K/uL RBC (4.2-5.4) M/uL Hgb (12.0-16.0) g/dL Hct (37-47) % MCV (80-100) fL MCH (25-34) pg MCHC (32-36) g/dL RDW Std Deviation (36.4-46.3) fL RDW Coeff of Nini (11.5-14.5) % Plt Count (130-400) K/uL MPV (7.4-10.4) fL Immature Gran % (Auto) % Neut % (Auto) % Lymph % (Auto) % [place] % (Auto) % Eos % (Auto) % Baso % (Auto) % Immature Gran # (Auto) (0.00-0.02) K/uL Neut # (Auto) (1.4-6.5) K/uL Lymph # (Auto) (1.2-3.4) K/uL [place] # (Auto) (0.11-0.59) K/uL Eos # (Auto) (0-0.5) K/uL Baso # (Auto) (0-0.2) K/uL Sodium 139 (136-145) mmol/L Potassium 3.1 L (3.5-5.1) mmol/L Chloride 111 H (98-107) mmol/L Carbon Dioxide 21 (21-32) mmol/L Anion Gap 7.0 (3-11) BUN 13 (7-18) mg/dl Creatinine 0.70 (0.6-1.2) mg/dl Est Cr Clr Drug Dosing 110.7 ml/min Est GFR ( Amer) 144.6 Est GFR (Non-Af Amer) 124.7 BUN/Creatinine Ratio 18.7 (10-20) Glucose 107 H (70-99) mg/dl POC Glucose (70-99) Osmolality (280-300) mOsm/kg Calcium 8.4 L (8.5-10.1) mg/dl Magnesium (1.8-2.4) mg/dl Total Bilirubin 0.2 (0.2-1) mg/dl AST 21 (15-37) U/L ALT 21 (12-78) U/L Alkaline Phosphatase 87 (45-117) U/L Total Protein 7.5 (6.4-8.2) gm/dl Albumin 3.6 (3.4-5.0) gm/dl Globulin 3.9 (2.5-4.0) gm/dl Albumin/Globulin Ratio 0.9 (0.9-2) HCG, Qual Negative (Negative) Nasal Screen MRSA (PCR) (Negative) Urine Opiates Screen (Neg) Ur Methadone, Qual (Neg) Urine Barbiturates (Neg) Ur Phencyclidine (PCP) (Neg) U Amphetamines Confirm U Amphetamin/Meth Scrn (Neg) U Methamphetamin Confrm MDMA (Ecstasy) Screen (Neg) U OH-Alprazolam Confrm U Benzodiazepines Scrn (Neg) 7-Amino Clonazepam Ur Nordiazepam Confirm U OH-ethylflurazepam U Lorazepam Cnf GC/MS U Oxazepam Confm GC/MS Ur Temazepam Confirm U OH-Triazolam Confirm U OH-Midazolam Confirm Ur Cocaine Metabolite (Neg) U Marijuana (THC) Screen (Neg) U Marijuana THC Carboxy Ethyl Alcohol mg/dL 438.0 H (0-3) mg/dl Methyl Alcohol Level 03/24/18 Range/Units 01:11 WBC 8.11 (4.8-10.8) K/uL RBC 4.54 (4.2-5.4) M/uL Hgb 14.0 (12.0-16.0) g/dL Hct 41.2 (37-47) % MCV 90.7 (80-100) fL MCH 30.8 (25-34) pg MCHC 34.0 (32-36) g/dL RDW Std Deviation 42.7 (36.4-46.3) fL RDW Coeff of Nini 12.9 (11.5-14.5) % Plt Count 283 (130-400) K/uL MPV 9.8 (7.4-10.4) fL Immature Gran % (Auto) 0.1 % Neut % (Auto) 50.7 % Lymph % (Auto) 41.1 % [place] % (Auto) 6.7 % Eos % (Auto) 0.7 % Baso % (Auto) 0.7 % Immature Gran # (Auto) 0.01 (0.00-0.02) K/uL Neut # (Auto) 4.11 (1.4-6.5) K/uL Lymph # (Auto) 3.33 (1.2-3.4) K/uL [place] # (Auto) 0.54 (0.11-0.59) K/uL Eos # (Auto) 0.06 (0-0.5) K/uL Baso # (Auto) 0.06 (0-0.2) K/uL Sodium (136-145) mmol/L Potassium (3.5-5.1) mmol/L Chloride (98-107) mmol/L Carbon Dioxide (21-32) mmol/L Anion Gap (3-11) BUN (7-18) mg/dl Creatinine (0.6-1.2) mg/dl Est Cr Clr Drug Dosing ml/min Est GFR ( Amer) Est GFR (Non-Af Amer) BUN/Creatinine Ratio (10-20) Glucose (70-99) mg/dl POC Glucose (70-99) Osmolality (280-300) mOsm/kg Calcium (8.5-10.1) mg/dl Magnesium (1.8-2.4) mg/dl Total Bilirubin (0.2-1) mg/dl AST (15-37) U/L ALT (12-78) U/L Alkaline Phosphatase (45-117) U/L Total Protein (6.4-8.2) gm/dl Albumin (3.4-5.0) gm/dl Globulin (2.5-4.0) gm/dl Albumin/Globulin Ratio (0.9-2) HCG, Qual (Negative) Nasal Screen MRSA (PCR) (Negative) Urine Opiates Screen (Neg) Ur Methadone, Qual (Neg) Urine Barbiturates (Neg) Ur Phencyclidine (PCP) (Neg) U Amphetamines Confirm U Amphetamin/Meth Scrn (Neg) U Methamphetamin Confrm MDMA (Ecstasy) Screen (Neg) U OH-Alprazolam Confrm U Benzodiazepines Scrn (Neg) 7-Amino Clonazepam Ur Nordiazepam Confirm U OH-ethylflurazepam U Lorazepam Cnf GC/MS U Oxazepam Confm GC/MS Ur Temazepam Confirm U OH-Triazolam Confirm U OH-Midazolam Confirm Ur Cocaine Metabolite (Neg) U Marijuana (THC) Screen (Neg) U Marijuana THC Carboxy Ethyl Alcohol mg/dL (0-3) mg/dl Methyl Alcohol Level Medications Administered Current Inpatient Medications Propofol (Diprivan) 1,000 mg in 100 mls @ 1.734 mls/hr IV .Q24H ROSA ELENA; Protocol Stop: 03/27/18 03:54 Last Admin: 03/24/18 08:07 Dose: Not Given Dextrose/Lactated Ringer's (D5w And Lactated Ringers) 1,000 mls @ 200 mls/hr IV .Q5H [facility] Stop: 03/24/18 13:59 Last Admin: 03/24/18 04:12 Dose: 200 mls/hr Miscellaneous (Icu Protocol For Hyperglycemia) 1 ea N/A PRN PRN; Protocol PRN Reason: Hyperglycemia Protocol Stop: 03/26/18 03:54 Resident Activity Tracking Resident Involvement: Resident Care Provided Care Provided: Adult [facility] Medicine _ (1) Alcohol overdose Encounter type: initial encounter Injury intent: accidental or unintentional Qualified Code(s): T51.91XA - Toxic effect of unspecified alcohol, accidental (unintentional), initial encounter (2) Hypothermia Encounter type: initial encounter Qualified Code(s): T68.XXXA - Hypothermia, initial encounter
--- NOTE | 2018-03-24 08:45 | Discharge Summary ---
Addendum entered and electronically signed by Luis Alberto Arceo MD 03/24/18 18:18 : Addendum (Blank) Addendum March 24, 2018 18:17 Error: Signing attending is Dr. Brooks (not Dr. Nevarez). Original Note: Date of Service March 24, 2018 Admission HPI Per Admitting Provider 22 y/o F Hx ADHD. The pt was at a college green party where she consumed a large amount of alcohol. She was with a group of friends most of the night who then lost track of her for a time period they estimate at 5 minutes. They set out to look for her and found her in the snow. EMS was called. She was taking shallow breaths and unresponsive when they arrived so that she was emergently intubated at the scene. On arrival to the ER she had a rectal temp as low as 32 '. She remains unconscious on admission although it is noted that she received both Etomidate and Vecuronium for intubation. Preceding info and the pt's medical history is obtained from friends who were with her, her parents and the EMS report. PMH: Limited to ADHD Has not had any prior surgery Social: Psychology major at [employer], Drinks alcohol - possibly regularly - smokes marijuana - no other drug use Family: No significant family history Admission Exam Per Admitting Provider General: GCS 4 HEENT: Head - normocephalic and atraumatic Pupils are 3mm equal, round, and non-reactive to light. Extraocular eye muscles are intact, and sclera are anicteric. Nose - moist nasal mucosa without discharge. Mouth - moist buccal mucosa. Endotracheal tube in place Oropharynx is nonerythematous and there is no tonsillar exudate or edema noted. Neck: Supple; no JVD, nuchal rigidity, cervical lymphadenopathy. Heart: Regular rate and rhythm. There is a normal S1 and S2 with no murmurs, clicks, or gallops appreciated. Lungs: Clear to auscultation bilaterally with no wheezes, rales, or rhonchi. Abdomen: Soft, completely nontender, nondistended, with good bowel sounds. There are no palpable pulsatile masses or hepatosplenomegaly. There is no guarding, rigidity, or rebound noted. Extremities: No evidence of cyanosis, clubbing, or edema. There are easily palpable peripheral pulses. Skin: warm and dry with good turgor and no rashes. Principal Diagnosis Acute alcohol intoxication, hypothermia, altered mental status Discharge Exam GENERAL: Awake, alert, mildly disoriented, appears fatigued, but does not appear in any acute distress. HENT: Normocephalic, atraumatic. Oropharynx unremarkable. EYES: Normal conjunctiva. Sclera non-icteric. NECK: Inspection normal. Non-tender. Supple and full ROM. No nuchal rigidity. CARDIAC: +S1S2 RRR, no murmurs. RESPIRATORY: Clear to auscultation. No wheezes or rales. Normal respiratory effort. GI: +BS, soft, non-distended. No tenderness to palpation. No rebound or guarding. EXTREMITIES: No pedal edema or calf tenderness. Moving all extremities naturally and easily. NEURO: No gross neuro deficits. Discharge Data Allergies Allergy/AdvReac Type Severity Reaction Status Date / Time No Known Allergies Allergy Unverified 03/24/18 01:20 Consultations 03/24/18 02:46 ED Decision to Admit Stat 03/24/18 03:55 Consult Case Management - Discharge Planning Routine Consult Hospitalist Program Director Routine Ordered Studies XR chest 1V portable FINDINGS: Endotracheal tube has been retracted and is now located in the lower thoracic trachea. This is approximately 1 cm from the narayan. Nasogastric tube remains in the proximal stomach with sidehole at or above the GE junction. Cardiomediastinal silhouette normal. No focal opacity. No large effusion or pneumothorax. Osseous structures normal. Upper abdomen normal. IMPRESSION: 1. Endotracheal tube now in the lower trachea approximately 1 cm from the narayan; consider slight further retraction. 2. Nasogastric tube terminates in the proximal stomach with sidehole at or above the GE junction; consider advancement. CT head/brain wo con IMPRESSION: 1. No acute intracranial abnormality. Hospital Course (1) Alcohol overdose: 22-year-old female was admitted on 24 March 2018 for hypoxia, hypothermia, and altered mental status. PRICING MANAGER: CAM-ICU negative this AM. Extubated this morning. CT head negative. EtOH was 438, trending down. UDS positive for benzo and THC. PMH ADHD, on adderall. Patient admits to binge drinking on the weekends. - Had a lengthy discussion with the patient and her parents at bedside. She will be no longer legally intoxicated roughly late this afternoon. She continued to do well and therefore was discharged to her parents custody. Recommended that she seek outpatient alcoholic treatment immediately. Pulm: Emergently intubated for hypoxia, extubated in a.m. Question of aspiration with emesis event. No opacity seen on CXR. Presently lungs are clear to auscultation. No evidence of respiratory distress. CVS: No known underlying CV disease. Relative hypotension with hypothermia, since resolved. Given IVF. ID: Hypothermic, likely environmental, resolving. No leukocytosis. No reported recent illnesses. Endo: Hypothermia with temp 36.1 on arrival, resolving. No known underlying DM or thyroid issues. Urine hCG negative. Renal/Lytes: Admit Cr 0.7. Hypokalemia, admit K 3.1, replaced. Magnesium repleted as well. Blood Osm 389. Osm gap -1. GI: No known acute issues. Tolerated diet post-extubation. Heme: Admit Hb 12.8. No known acute issues. DVT prophy: SCDs and early ambulation. Skin: No evidence of frostbite on extremities. Disposition: Into her parents custody. Recommended acute outpatient alcohol treatment as well as follow-up with her primary care provider. (2) Hypothermia: (3) Hypoxia: (4) Hypokalemia: (5) Acute respiratory failure with hypoxia: Total Time Total Time Spent Total Time Spent (In Minutes): > 30 min Discharge Plan Discharge Items Patient Disposition: Home - Self-Care Reason For Visit: HYPOTHERMIA, LOC Discharge Diagnosis: Acute alcohol intoxication, hypothermia, altered mental status Discharge Goals: Learn about illness and Prevent disease Activity: Per 'Additional Instructions' section Non-emergency contact: Primary Care Provider Call non-emergency contact if: your symptoms worsen Follow-up/Referrals: PCP,NO [Primary Care Provider] - Diet: Regular Addtl Provider Instructions: You were admitted to the intensive care unit overnight due to your elevated alcohol level, low body temperature, and for not breathing enough. While in the hospital we evaluated the following issues: Acute alcohol intoxication: At time of arrival to the hospital, your blood alcohol level was 0.438. As a comparison, the regular legal limit is 0.08. As you noted, have a history of binge drinking on the weekends. As we discussed, this is quite dangerous for you and in this case landed you in the intensive care unit. We strongly recommend that you seek an outpatient alcohol rehabilitation program such as Alcoholics Anonymous. It is also very important that you follow-up with your primary care provider to discuss further treatment strategies to include ways to protect both your brain and liver from further alcohol damage. Hypothermia: You were noted to be quite cold on arrival, most likely due to your environmental exposure having been found on the ground outside. At this time there is no evidence of any frostbite. Please follow-up with your primary care provider if you have any concerns about skin issues discovered after discharge. Hypoxia: The paramedics who initially treated you found that you had very low blood oxygen levels because you were not breathing enough. This was due to your acute alcohol intoxication. You were briefly intubated (had a breathing tube placed) to keep you alive. This was removed on the morning of your discharge. You may have a bit of a sore throat for the next couple of days. Please seek acute medical care if you notice any worsening difficulty speaking or swallowing. We hope that this visit to the intensive care unit is an opportunity for you to change course and stop consuming alcohol. Please follow-up with your primary care provider as well as an outpatient alcohol treatment program for further acute care. Please return to the nearest emergency department if you develop any new (unexpected) focal chest pains, difficulty breathing, abdominal pain, or any other emergent concerns. Prescriptions: Continue dextroamphetamine-amphetamine [Adderall XR] 25 mg Capsule,Extended Release 24hr 25 mg PO DIRECTED RF: 0 Stand-Alone Forms: vocaltap/Other Patient Handouts: ED Intoxication Alcohol Discharge Orders: Discharge Order (Routine); Ordered 03/24/18 Ordered By: Luis Alberto Arceo Admission Data Admit Date/Time: 03/24/18 03:13 Attending Provider: Marcelino Brooks Admit Provider: Ravi Chris Primary Care Provider: PCP,NO Other Providers: Ravi Chris ; David Nevarez Service: Intensive Care Unit Other Interventions: Discharge Summary Assessment (RN) Last Done: 03/24/18 14:23 Pending Studies at Discharge: No DC Date/Time DO NOT enter until pt leaves facility: 03/24/18 14:39 Supervising Physician Co-Signing Physician Notes Attending Attestation & D/C note: Pt seen/examined, chart reviewed, discharge care plan d/w ROLY Mazariegos as well as resident Dr. Luis Alberto Arceo. I agree w/ the chicas components of his discharge documentation. 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 Was maintained on the ventilator for a brief period of time while her alcohol intoxication resolved. Was given supportive care including IV fluids. Was easily extubated from the vent. Hypothermia resolved shortly after admission. Discharged to home with her mother. Alcohol counseling & rehab strongly advised to the patient. Discharge exam: gen - NAD mouth - MMM heart - tachy, s1, s2, no murmur lungs - CTA b/l abd - soft, NT, no HSM ext - no edema psych - awake, alert, oriented x 3 Marcelino Brooks MD Resident Activity Tracking Resident Involvement: Resident Care Provided Care Provided: Adult Hospital Medicine
[2018-03-24] MEDS ORDERED: MULTI-VITAMIN INFUSION 10 ML, THIAMINE HCL 100 MG, FOLIC ACID 1 MG in SODIUM CHLORIDE 0... IV SCH (10:30)
--- NOTE | 2018-03-24 15:23 | Communication Note ---
Date of Service: March 24, 2018 Ms. Resendez is a 22 year old female who presented with hypoxia requiring intubation, hypothermia and altered mental status. ETOH level was 438. ICU was consulted; she was extubated early this morning. The ICU staff had a lengthy discussion with the patient and her parents this morning. She was no longer intoxicated this afternoon and was considered stable for discharge to home. A banana bag was administered prior to discharge. Pt. was discharged to home in the custody of her parents.
[2018-03-26 10:28] LABS: 7-Aminoclonaz, Confirm NEGATIVE NG/ML (CUTOFF=25); Amphetamine Urine, Confirm 7430 NG/ML (CUTOF=250); Hydro-Alp Ur, GC/MS NEGATIVE NG/ML (CUTOFF=25); Hydroxyethylflurazepam, Conf NEGATIVE NG/ML (CUTOFF=50); Hydroxytriazolam NEGATIVE NG/ML (CUTOFF=50); Lorazepam, Ur GC/MS NEGATIVE NG/ML (CUTOFF=50); Marijuana Quant, GCMS Urine 46 NG/ML (CUTOFF=5); Nordiazepam, Confirm NEGATIVE NG/ML (CUTOFF=50); Oxazepam Ur, GC/MS NEGATIVE NG/ML (CUTOFF=50); Temazepam, Confirm NEGATIVE NG/ML (CUTOFF=50)
== END 2018-03-24 14:39 | disposition home or self-care (01) | DRG 918 ==
LOC: ED 00:52 → 1E 03:13 → SUATTDRO 03:13 → 1E 03:23
DX: F90.9 Attention-deficit hyperactivity disorder, unspecified type; X58.XXXA Exposure to other specified factors, initial encounter; T51.91XA Toxic effect of unspecified alcohol, accidental (unintentional), initial encounter; T68.XXXA Hypothermia, initial encounter; E87.6 Hypokalemia